=== PATIENT | female | born 1945 | race Caucasian/White ===

== ENCOUNTER 2017-04-27 10:56 | Inpatient (IN) | payer MEDICARE, OTHER ==
[~2017-04-27] VITALS: Ht 170.2 cm; Wt 55.3 kg
[~2017-04-27 10:56] MED LIST: ASPIRIN325 MG PO; BENZTROPINE MESY1 MG PO; BENZTROPINE PO; CELEBREX200 MG PO; CIPRO500 MG PO; DEPAKOTE ER250 MG PO; DEPAKOTE PO; FLUCONAZOLE200 MG PO; FLUPHENAZINE HC10 MG PO; Gabapentin PO; Guaifenesin/Dextromethorphan PO; HYDROCORTISONE20 MG PO; MELATONIN 3 MG1 EACH PO; METRONIDAZOLE500 MG PO; MOBIC7.5 MG PO; NORCO 5-325 TA1 EACH PO; PHENAZOPYRIDIN200 MG PO; PROLIXIN PO; ZOCOR20 MG PO
[2017-04-27] MEDS ORDERED: ALBUTEROL/IPRATROPIUM 3 ML NEB NEB ONE (11:15)
[2017-04-27] MEDS ORDERED: SODIUM CHLORIDE 0.9% 500ML 500 ML ONE (11:17)
[2017-04-27] MEDS ORDERED: SODIUM CHLORIDE 0.9% 500ML 500 ML IV ONE (11:30)
[2017-04-27 11:46] LABS: BASOPHILS # (AUTO) 0.1 (0.0-0.1); BASOPHILS % 0.2 % (0.0-1.0); HEMATOCRIT 37.4 % (34.2-44.1); HEMOGLOBIN 12.9 g/dL (12.0-16.0); LYMPHOCYTES # (AUTO) 1.8 (1.0-3.2); LYMPHOCYTES % 5.2 % (18.0-39.1); MEAN CORPUSCULAR HEMOGLOBIN 33.5 pg (28-32); MEAN CORPUSCULAR HGB CONC 34.5 g/dL (31-35); MEAN CORPUSCULAR VOLUME 97.1 fL (81-99); MONOCYTES # (AUTO) 4.6 (0.2-0.8); MONOCYTES % 13.4 % (4.4-11.3); NEUTROPHILS # (AUTO) 27.3 (2.1-6.9); NEUTROPHILS % 79.6 % (38.7-80.0); PLATELET COUNT 175 x10e3/uL (140-360); RED BLOOD COUNT 3.85 x10e6/uL (3.6-5.1); RED CELL DISTRIBUTION WIDTH 13.8 % (11.7-14.4)
[2017-04-27 11:50] LABS: INR 0.94
[2017-04-27 11:51] LABS: PARTIAL THROMBOPLASTIN TIME 31.9 seconds (23.8-35.5)
[2017-04-27 12:00] LABS: ALANINE AMINOTRANSFERASE 9 IU/L (0-55); ALBUMIN 3.2 g/dL (3.5-5.0); ALBUMIN/GLOBULIN RATIO 0.9 (0.8-2.0); ALKALINE PHOSPHATASE 52 IU/L (40-150); ANION GAP 14.9 mmol/L (8-16); BLOOD UREA NITROGEN 11 mg/dL (7-26); BUN/CREATININE RATIO 15 (6-25); CALCIUM 8.8 mg/dL (8.4-10.2); CARBON DIOXIDE 26 mmol/L (22-29); CHLORIDE 95 mmol/L (98-107); CREATINE KINASE 177 IU/L (29-168); CREATININE, SERUM 0.75 mg/dL (0.57-1.11); EST GLOMERULAR FILTRATION RATE > 60 ML/MIN (60-); GLUCOSE 123 mg/dL (74-118); POTASSIUM 3.9 mmol/L (3.5-5.1); SODIUM 132 mmol/L (136-145)
[2017-04-27 12:11] LABS: TROPONIN I 0.005 ng/mL (0-0.300)
[2017-04-27] MEDS ORDERED: SODIUM CHLORIDE 0.9% 1000ML 1,000 ML ONE (12:13)
[2017-04-27] MEDS ORDERED: PIPER-TAZ 3.375 GM 50 ML IV ONE (12:15)
[2017-04-27] MEDS ORDERED: SODIUM CHLORIDE 0.9% 1000ML 1,000 ML IV SCH (12:15)
[2017-04-27 12:18] LABS: BILIRUBIN,URINE NEGATIVE (NEGATIVE); CLARITY,URINE SL CLOUDY (CLEAR); COLOR,URINE YELLOW (YELLOW); KETONES,URINE NEGATIVE (NEGATIVE); LEUKOCYTE ESTERASE ,URINE NEGATIVE (NEGATIVE); NITRITE,URINE NEGATIVE (NEGATIVE); PROTEIN,URINE DIPSTICK NEGATIVE (NEGATIVE); URINE UROBILINOGEN 0.2 mg/dL (0.2 - 1)
[2017-04-27 12:32] LABS: BACTERIA,URINE RARE /HPF; EPITHELIAL CELLS,URINE RARE /LPF; RBC,URINE 21-50 /HPF (0-5); WBC,URINE (MAN) 0-5 /HPF (0-5)
[2017-04-27] MEDS ORDERED: ALBUTEROL/IPRATROPIUM 3 ML NEB NEB NR (13:00)
[2017-04-27] MEDS ORDERED: VANCOMYCIN 1GM/NS 250 ML 250 ML IV ONE (13:00)
--- NOTE | 2017-04-27 13:54 | Diagnostic Imaging Report ---
PROCEDURE: A single AP view of the chest. COMPARISON: None. INDICATIONS: WEAKNESS, FALL FINDINGS: Lines/tubes: None. Lungs: The lungs are well inflated and clear. There is no evidence of pneumonia or pulmonary edema. Pleura: There is no pleural effusion or pneumothorax. Heart and mediastinum: Calcification of the aortic arch. Bones: No acute bony abnormality. IMPRESSION: 1. No acute cardiopulmonary disease. Anastasiia Masters M.D. Dictated by: Anastasiia Masters M.D. on 04/27/2017 at 14:03 Electronically approved by: Anastasiia Masters M.D. on 04/27/2017 at 14:03
--- NOTE | 2017-04-27 14:03 | Diagnostic Imaging Report ---
PROCEDURE: L-SPINE COMPLETE COMPARISON: None. INDICATIONS: FALL, BACK PAIN, WEAKNESS FINDINGS: There are 5 [id number] lumbar-type vertebral bodies. Rotatory dextroscoliosis of the lumbar spine. Anterior wedge deformity of L2 and to a lesser degree L3 suggesting compression deformities of uncertain age. Degenerative disc disease and spondylosis in the L4-L5. Atherosclerotic calcifications of the abdominal aorta. CONCLUSION: Compression deformities of L2 and L3 suggesting fractures of uncertain age possibly acute in the clinical scenario of recent fall. Anastasiia Masters M.D. Dictated by: Anastasiia Masters M.D. on 04/27/2017 at 14:11 Electronically approved by: Anastasiia Masters M.D. on 04/27/2017 at 14:11
[2017-04-27 14:05] LABS: ABG HCO3 21 mmol/L (23-28); ABG PCO2 31 mmHg (41-51); ABG PH 7.44 (7.31-7.41); ABG PO2 66 mmHg (80-105)
--- NOTE | 2017-04-27 14:09 | Diagnostic Imaging Report ---
PROCEDURE:X-RAY PELVIS, AP VIEW COMPARISON:None. INDICATIONS:FALL, WEAKNESS FINDINGS: Bone fragments lateral to the left hip joint with deformity of the greater trochanter consistent with avulsion fractures of uncertain age, likely old, correlate for left hip pain. Degenerative changes of the lower lumbar spine and bilateral SI joints. Deformity of the left femoral neck with remodeling likely reflecting remote fracture. CONCLUSION: Findings suggestive of remote avulsion fracture of the left greater trochanter and remote healed fracture of the left femoral neck however, correlate for left hip pain. Anastasiia Masters M.D. Dictated by: Anastasiia Masters M.D. on 04/27/2017 at 14:17 Electronically approved by: Anastasiia Masters M.D. on 04/27/2017 at 14:17
--- NOTE | 2017-04-27 14:14 | Diagnostic Imaging Report ---
EXAMINATION: Head CT HISTORY: Status post fall, weakness, pain COMPARISON: Head CT on 01/11/2017 TECHNIQUE: Multidetector axial images were obtained without contrast from the foramen magnum to the vertex . The images were reconstructed using brain and bone algorithms. Thin section brain images were reformatted into coronal and sagittal planes. Intravenous contrast: None. Motion/streaking artifact limits the evaluation of the study in spite of repetition. FINDINGS: Parenchyma: 1. Unchanged mild chronic microvascular ischemic changes. Empty sella turcica calcification of the globi pallidi. 2. No mass or hemorrhage. No CT evidence of acute territorial vascular insult. Extra-axial spaces:No abnormal density. No extra-axial fluid collections Brain volume: Normal for age. Ventricles: No hydrocephalus or displacement. Arteries: No density suggestive of thrombus. Dural sinuses: No abnormal density. Extra-axial spaces: No abnormal density. Foramen magnum: No mass, Chiari malformation, or basilar invagination. Sella: No obvious mass. Paranasal/mastoid sinuses: Imaged portions unremarkable. Skull/Scalp: No lytic or blastic lesions. No fractures. IMPRESSION: 1. Suboptimal study due to motion, grossly no acute intracranial abnormalities, particularly no hemorrhage or acute cortical infarcts. 2. Unchanged mild chronic microvascular ischemic changes. Signed by: Dr. Zhanna Fuentes M.D. on 04/27/2017 2:11 PM
[2017-04-27 14:24] LABS: BAND NEUTROPHILS % (MANUAL) 2 %; LYMPHOCYTES % (MANUAL) 3 % (19-48); MONOCYTES % (MANUAL) 15 % (3.4-9.0); NEUTROPHILS % (MANUAL) 78 % (40-74)
[2017-04-27 14:25] LABS: ANISOCYTOSIS SLIGHT; PLATELET ESTIMATE ADEQUATE; PLATELET MORPHOLOGY COMMENT FEW LARGE; RBC MORPHOLOGY COMMENT NORMAL
[2017-04-27] MEDS ORDERED: METHYLPREDNISOLONE SOD SUCC 125 MG/2ML VIAL IV ONE (14:30)
[2017-04-27] MEDS: ALBUTEROL/IPRATROPIUM 3 ML NEB NEB SCH ×2 (15:00→17:49)
[2017-04-27] MEDS ORDERED: GADOBENATE DIMEGLUMINE 0 ML IV ONE (19:40)
--- NOTE | 2017-04-27 20:58 | Consultation ---
DATE OF CONSULTATION: April 27, 2017 REASON FOR CONSULTATION: Shortness of breath. PRIMARY CARE PHYSICIAN: Dr. Brown. HISTORY OF PRESENT ILLNESS: Ms. Griffin is a 71-year-old female known to me from previous admission. Patient has history of COPD. She presented with worsening shortness of breath going on for last 2 days. She denies any nausea, vomiting or diarrhea. During the last admission, she remained in the ICU on BiPAP. She was hypotensive and was in shock. She went to [facility]. She still smokes. She has advanced COPD. REVIEW OF SYSTEMS: GENERAL: Denies any fever, chills. She reports body aches. HEENT: Denies any head trauma. Denies any earache, nosebleed or throat pain. CVS: Denies any chest pain. RESPIRATORY: Shortness of breath. GI: Denies any nausea or vomiting. Rest of the review systems are negative except as in history of present illness. PAST MEDICAL HISTORY: Osteoporosis, COPD, history of carotid endarterectomy. FAMILY HISTORY AND SOCIAL HISTORY: She still smokes. She does not drink. PHYSICAL EXAMINATION: VITALS: Temperature 98.7, pulse of 104, blood pressure 108/88, respiratory rate of 18 to 20. O2 sat is 92% on 40% FIO2. She is on BiPAP 10/6. HEENT: Head atraumatic and normocephalic. Pupils are reactive. NECK: Supple, no JVD. CHEST: Reduced air entry bilaterally and wheezing. HEART: S1 and S2 audible. ABDOMEN: Soft and nontender. EXTREMITIES: No clubbing, cyanosis or edema. NEUROLOGIC: Awake and alert. LABORATORY DATA: White count 34,000, hemoglobin 12.9, hematocrit 37.4, platelets 175,000. Chemistry is within normal limits. Sodium 132, potassium 3.9, chloride 95, BUN 11, creatinine 0.75. ASSESSMENT AND PLAN: Ms. Griffin is a 71-year-old female with COPD, still smokes. She presented with wheezing and shortness of breath. She was weak. Neurology evaluation has been done. She had a fall today. Chest x-ray is suggestive of no pneumonia. Brain CT is not showing any acute infarct. Lumbar spine CT showed compression deformities of L2 and L3. CURRENT PROBLEMS: 1. Possible chronic obstructive pulmonary disease exacerbation. 2. Leukocytosis. I am unsure if she was getting steroids as an outpatient. 3. Generalized weakness. PLAN: I will check influenza antigen. Continue the patient on Solu-Medrol, vancomycin and Zosyn along with nebulizers ordered. Continue the patient on BiPAP for now. ABG reviewed, pH of 7.4, pCO2 31, pO2 66. This was done on 3 liters nasal cannula. Thank you for this consult. Job#: [id number]
[2017-04-27] MEDS: METHYLPREDNISOLONE SOD SUCC 125 MG/2ML VIAL IV SCH (21:00)
[2017-04-27] MEDS: VANCOMYCIN 1GM/NS 250 ML 250 ML IV SCH (22:00)
[2017-04-27] MEDS: PIPER-TAZ 3.375 GM 50 ML IV SCH (22:00)
--- NOTE | 2017-04-27 22:28 | Consultation ---
DATE OF CONSULTATION: April 27, 2017 NEUROLOGY CONSULT NOTE HISTORY OF PRESENT ILLNESS: Ms. Griffin is a 71-year-old woman who presented to the emergency center at [facility] on the morning of April 27, 2017, after a fall. Ms. Griffin states she was walking to the bathroom when she stumbled over her oxygen tank, fell backwards, and landed on her bottom. The patient did not hit her back, neck, or head. After the fall, the patient was unable to get up due to weakness in her legs. Specifically, the patient felt her legs would not support her weight. Ms. Griffin found it difficult to move due to pain over the sacral spine as well. Some time later, the patient's , who is deaf, found her sitting on the floor in the hallway. He took her to the bathroom, then the patient ambulated to a couch with the aid of a walker. Despite the patient's refusal, her notified emergency medical services, and Ms. Griffin was transported to [facility] via ambulance. At this time, the patient endorses a dull aching pain in both hips. Ms. Griffin reports having a history of bursitis and chronic hip pain. She does not endorse radicular pain in either leg. She does not report numbness, tingling, or pins and needle sensation in either leg. The patient does report weakness in both legs as previously described in the history of present illness. Ms. Griffin does not report any new bladder or bowel symptoms. When asked about back or neck pain, the patient reports chronic back and neck pain for which she takes gabapentin and tramadol. However, she does not report worsening of her chronic neck or back pain at this time. It is important to note, Ms. Griffin was hospitalized at [facility] for diskitis in January of 2017. She was treated for several weeks with intravenous antibiotics. Neurosurgery was consulted during her admission, but the patient was not taken for biopsy or other neurosurgical procedure. Her symptoms gradually improved with intravenous antibiotic treatment. Ms. Griffin has a resting tremor affecting her left hand and arm. The patient reports having this tremor for "a really long time." She does not endorse a tremor in any other extremities. The patient does report slowness of movement as well as impairment of balance and gait. She does not report diminished sense of smell. There is no family history of tremor, Parkinson disease or other neurologic disease in the patient's family. REVIEW OF SYSTEMS: Ms. Griffin endorses dry mouth, shortness of breath, dyspnea on exertion, dry cough, chronic constipation, dry skin, diffuse joint pain, mid and low back pain, questionable dysarthria, weakness of the legs, impaired balance and gait, tremor, and occasional headaches. Otherwise a 12-point review of systems is negative. PAST MEDICAL HISTORY: Ms. Griffin has a past medical history significant for hyperlipidemia, coronary artery disease with a myocardial infarction in 2016, COPD, and osteoarthritis. The patient was diagnosed with schizophrenia at 37 years of age. Ms. Griffin endorses a history of bilateral carotid artery atherosclerosis and stenosis as well as bilateral cataracts. PAST SURGICAL HISTORY: Placement of bilateral carotid stents, bilateral tubal ligation, tonsillectomy. PAST HOSPITALIZATIONS: In addition to the above surgeries, the patient has been hospitalized multiple times for schizophrenia. She has had multiple hospitalizations for COPD exacerbation, pneumonia and diskitis as described in the history of present illness. FAMILY HISTORY: The patient's father from heart failure at the age of 72 years. The patient's mother from heart failure at the age of 82 years. The patient has 1 sister who at the age of 72 due to intercerebral hemorrhage secondary to trauma. A 2nd sister is from lung cancer. Ms. Griffin has 1 child, a son, who is healthy. SOCIAL HISTORY: The patient graduated high school and attended some college. She is retired. 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 Ms. Griffin is . The patient does endorse current tobacco use. She has smoked as much as 1-1/2 packs per day for 45+ years. At this time, the patient smokes one-half pack per day. The patient does not report current or prior alcohol use or recreational drug use. HOME MEDICATIONS: 1. Depakote 500 mg by mouth in the morning and 1000 mg by mouth in the evening. 2. Fluphenazine 5 mg by mouth at bedtime. 3. Gabapentin 300 mg by mouth three times daily. 4. Tramadol 50 mg by mouth 4 times daily. 5. Ms. Griffin takes a medicine for osteoporosis by mouth weekly. 6. The patient is on continuous home oxygen at 4 L via nasal cannula. Upon review of the patient's chart, there are additional home medications listed. These include: 1. Benztropine 1 mg by mouth twice daily. 2. Fluconazole 200 mg by mouth every other day. 3. Meloxicam 7.5 mg by mouth daily. 4. Metronidazole 500 mg by mouth three times daily. 5. Phenazopyridine 200 mg by mouth 2 times daily. Ms. Griffin does not recall taking these medications at home. ALLERGIES: NO KNOWN DRUG ALLERGIES, NO KNOWN FOOD ALLERGIES, NO KNOWN ALLERGY TO LATEX, NO KNOWN ALLERGY TO CONTRAST MATERIAL. PHYSICAL EXAMINATION: VITAL SIGNS: Height 5 feet 7 inches, weight 122 pounds, BMI 19.11. Blood pressure 112/88 mmHg, pulse 104 beats per minute, respiratory rate 22 breaths per minute. The patient is on BiPAP. GENERAL: The patient is awake and alert. On BiPAP. The patient appears thin. The patient appears older than stated age. HEENT: Normocephalic, atraumatic. Pupils are equal, round and reactive to light. Dry mucous membranes. NECK: Supple. No appreciable thyromegaly. No appreciable carotid bruits. CARDIOVASCULAR: S1, S2, regular rhythm, tachycardic. No murmurs, rubs, or gallops. RESPIRATORY: On BiPAP. No wheezes, rhonchi or rales are appreciated. EXTREMITIES: No clubbing, cyanosis, or edema. The posterior tibial and dorsalis pedis pulses are 1+ and symmetric. SKIN: Warm and dry. No rashes or lesions. NEUROLOGIC: MEMORY/ATTENTION: The patient is awake and alert, oriented to person, place, time, and situation. CRANIAL NERVES: Cranial nerve I - not tested. Cranial nerve II, III, IV, and - Pupils are equal and round, react briskly to light (from 4 mm to 2 mm), extraocular movements intact, no nystagmus. Cranial nerve V - sensation to light touch and pinprick is intact in the bilateral V1 through V3 distributions. Strength in the temporalis and mastoid muscles are within normal limits. Cranial nerve VII - the face is symmetric as are all facial movements. Strength is within normal limits. Cranial nerve VIII - hearing is intact to finger rub bilaterally. Cranial nerve IX, X - the soft palate elevates equally and symmetrically. Cranial nerve XI - normal strength of the bilateral sternocleidomastoid and trapezius muscles. Cranial nerve XII - the tongue protrudes in midline and moves symmetrically from side to side. STRENGTH: Bulk is mildly diminished. Strength is 4+/5 to 5/5 in the bilateral deltoids, biceps, triceps, wrist flexors and extensors, finger flexors and extensors, intrinsic hand muscles, hip flexors, knee flexors and extensors, ankle dorsiflexion and plantar flexion, and intrinsic foot muscles. Tone is normal. DTRs: Deep tendon reflexes are 2+ and symmetric at the triceps, biceps, brachioradialis, patellas, and Achilles. Plantar responses are flexor bilaterally. Sustained clonus at the ankles. SENSATION: Sensation is intact to light touch and pinprick in both arms and legs. CEREBELLAR: Flmhna-whnn-pxsutk and heel-estrada movements are intact without dysmetria or other impairment. GAIT: Deferred due to fall risk. SPEECH: Spontaneous speech is normal without appreciable dysarthria or aphasia. Repetition is intact. INVOLUNTARY MOVEMENTS: The patient is observed to have a moderate-frequency, moderate-amplitude resting tremor of the left hand and arm. PRONATOR DRIFT: None. LABORATORY DATA: Sodium 132, potassium 3.9, chloride 95, carbon dioxide 26, anion gap 14.9, BUN 11, creatinine 0.75. Estimated GFR greater than 60. BUN to creatinine ratio 15. Glucose 123, lactic acid 26.3 and 25.3, calcium 8.8. Total bilirubin 0.3. AST 20, ALT 9, alkaline phosphatase 52, creatinine kinase 177, CK-MB 4.70, troponin I 0.005. B-type natriuretic peptide 148.7. Total protein 6.9, albumin 3.2, globulin 3.7, albumin to globulin ratio 0.9. White blood cell count is 34.28 with a right shift, neutrophils 79.6%, lymphocytes 5.2%, monocytes 13.4%, eosinophils 0%, basophils 0.2%. Hemoglobin is 12.9, hematocrit is 37.4, platelet count is 175,000. PT 13.0, INR 0.94, PTT 31.9. Blood gas shows pH of 7.44, pCO2 of 31, pO2 of 66, bicarbonate of 21, oxygen saturation 94. Urinalysis is significant for 4+ blood and 21 to 50 red blood cells. Urine and blood cultures have been drawn and are pending. IMAGING STUDIES: CT of the brain without contrast, April 27, 2017: On my review, the images are of poor quality secondary to movement and streak artifact. There does not appear to be a significant area of ischemia, hemorrhage, mass or mass effect. Trya-on-hydqjxuo chronic small vessel disease is observed. Lumbar spine x-ray, April 27, 2017: On my review, rotary dextroscoliosis of the lumbar spine is observed. Anterior wedge deformity of the L2 and L3 vertebra are seen, suggestive of compression fractures of unknown age. Degenerative disk disease throughout the lumbar spine is appreciated. ASSESSMENT AND PLAN: Ms. Griffin is a 71-year-old woman who presented to [facility] on the morning of April 27, 2017, status post fall at home. At the time of this evaluation, the patient is afebrile and does not report new or worsening neck or back pain. She does report pain in both hips which she attributes to previously diagnosed bursitis. The patient does report weakness in both legs. She does not endorse radicular pain or numbness, tingling or pins and needles sensation affecting either leg. Other than chronic constipation, the patient does not endorse bladder or bowel dysfunction. During this evaluation, Ms. Griffin was found to have a resting tremor affecting the left arm and hand. The patient does report having this tremor for "a long time." In addition to the resting tremor of the left arm, the patient reports slowness of movement and gait and balance impairment. The patient's general physical examination is significant for the patient being on bilevel positive airway pressure. She is tachycardic on general examination. There is no tenderness on palpation of the cervical, thoracic, or lumbar vertebrae. On neurological examination, strength is 4+/5 to 5/5 in all muscles examined in the arms and legs. Tone is normal. Ms. Griffin is observed to have a moderate-frequency and moderate-amplitude resting tremor affecting the left arm and hand. There is no segmental hypokinesis appreciated on her neurological examination. Of note, the patient does have sustained clonus of both ankles. The patient's laboratory data and imaging studies have been reviewed and are documented above. Due to the patient's previous history of diskitis diagnosed in January 2017 and treated with several weeks of intravenous antibiotics, there is concern the patient may be experiencing a recurrence of diskitis. This is of special concern due to the patient's elevated white blood cell count with rightward shift. However, Ms. Griffin does not endorse new or worsening back pain. While she does endorse pain in her hips which is chronic and subjective weakness of her legs, she does not report radicular pain, numbness, tingling, or pins and needles sensation affecting either leg. She does not report new or worsening bladder/bowel dysfunction. On her physical examination, there is no point tenderness with palpation over vertebral bodies throughout the entire spine. Personally, I have a low concern for discitis. Magnetic resonance imaging of the lumbar spine with and without contrast has been ordered and is pending. The history of the patient's fall, the resting tremor observed in the left hand and arm, the reported symptoms of bradykinesia and impairment of gait and balance are suspicious for parkinsonism. The patient has findings of parkinsonism on her neurological examination. It is possible Ms. Griffin has idiopathic Parkinson disease. However, other considerations include vascular parkinsonism. Ms. Griffin does have a history of coronary artery disease with a prior myocardial infarction 2 years ago as well as carotid artery stenosis status post bilateral stent placement. Therefore, it is possible the patient has vascular changes within the brain which could be causing her parkinsonian appearance. Ms. Griffin will be further evaluated with magnetic resonance imaging of the brain without contrast. Another possible diagnosis to account for the patient's symptoms and findings on neurological examination would be parkinsonism as an effect of medication. Ms. Griffin has taken fluphenazine, a first generation antipsychotic, since the age of 37 years. Extrapyramidal movements are a known side effect of this class of medication. On review of the electronic chart, Ms. Griffin has benztropine listed as a home medication. This medication may be given in conjunction with an antipsychotic to increase the amount of dopamine to the brain thereby minimizing the extrapyramidal movements. However, Ms. Griffin reports not taking this medication at home. RECOMMENDATIONS: 1. MRI of the lumbar spine with and without contrast. This study has been ordered. Follow up on the results of this study. 2. Infectious disease and neurosurgery consultations have been placed. Follow up on their recommendations. 3. MRI of the brain without contrast to evaluate for vascular disease as a cause of the patient's parkinsonism. 4. Continue with the patient's psychotropic medications for the time being. Consider prescribing benztropine during this hospitalization. 5. Ms. Griffin should receive smoking cessation counseling prior to her discharge from the hospital. 6. Defer treatment of the remaining medical comorbidities to the primary and other services. Thank you for this consultation. I will continue to follow this patient along with you is in the hospital. Time spent: 70 minutes. Job#: [id number]
[2017-04-27] MEDS ORDERED: SODIUM CHLORIDE 0.9% 50ML 50 ML ONE (22:42)
[2017-04-27] MEDS ORDERED: IOPAMIDOL 370 MG/ML 200 ML INFUS..BTL INJ ONE (22:42)
--- NOTE | 2017-04-27 23:04 | Diagnostic Imaging Report ---
History: Low back pain, discitis. Comparison studies: None Technique: Axial images were obtained from T11 through the sacrum. Coronal and sagittal images reconstructed from the axial data. Intravenous contrast: None Findings: Number of non-rib bearing vertebral bodies: 5 Alignment: Straightening of the lumbar lordosis. Grade I retrolisthesis of L2 on L3. Grade I anterolisthesis of L4 on L5. Levoscoliosis centered at L4-5 . Soft tissues: No abnormalities. Paraspinal muscles: Fatty infiltration at te lumbosacral region secondary to atrophy Vertebrae: No acute fractures, infection or neoplasm. Collapse of L3 superior endplate with sclerotic changes. Degenerative changes: L1-L2: No abnormalities. L2-L3: Obliterated intervertebral space on the left with sclerotic changes and endplate irregularities. Asymmetric left disc osteophyte complex and moderate facet hypertrophy result in moderate canal stenosis and moderate left foraminal narrowing. L3-L4: Asymmetric left disc bulge results in moderate left foraminal narrowing L4-L5: Disc degeneration with sclerotic changes more prominent on the right. Diffuse disc bulge and moderate facet hypertrophy results in moderate canal stenosis, moderate left and severe right foraminal narrowing L5-S1: Patent canal and foramina Sacroiliac joints: Mild degenerative changes. Atherosclerotic changes of the abdominal aorta and branches. IMPRESSION: 1. Severe disc degeneration at L2-3 and L4-5. Chronic depression of L2 superior endplate. No CT changes of discitis 2. Moderate canal stenosis, severe right and moderate left foraminal narrowing at L4-5 secondary to degenerative changes. Other degenerative changes as described above. Signed by: DR Tate Jasmine M.D. on 04/27/2017 11:01 PM
[2017-04-28] MEDS: ALBUTEROL/IPRATROPIUM 3 ML NEB NEB SCH ×7 (00:15→23:45)
--- NOTE | 2017-04-28 00:19 | History and Physical ---
HISTORY OF PRESENT ILLNESS: This is one of many admissions. The patient presented to the emergency room with symptoms of weakness. She was short of breath and found to be hypoxemic. She has had multiple similar admissions and previously has had marked leukemoid reactions. The patient has a history of COPD and has been smoking heavily. She states she also used marijuana in the past occasionally. See also multiple recent stays here including last January stay. History has included nonobstructive coronary changes on recent heart cath elsewhere. PAST SURGICAL HISTORY: Includes 2012 right carotid endarterectomy. EGD and colonoscopy April 2015. Prior tonsillectomy. Bilateral tubal ligation. FAMILY HISTORY: Includes mother with high blood pressure and diabetes. Father with organic heart disease. MEDICATIONS: The patient did not bring her home meds and does not know what her home meds are. ER obtained a partial list including Benztropine, Mobic, Flagyl, prior use of divalproex and fluphenazine, phenazopyridine and Neurontin. PAST MEDICAL HISTORY: See also admission January 2015 with similar difficulties including COPD. History of bipolar disorder and schizophrenia. Patient has had chronic back pain and last fall outpatient imaging studies and inpatient imaging studies (01/12/17 here, MRI and lumbar spine), with impression of L2-3 and L4-5 chronic diskitis-osteomyelitis, advanced facet arthrosis, foraminal stenosis L2-3 left and L4-5 right, multilevel DJD per Dr. Hanley, radiologist here. At that time, the patient was seen by infectious disease retail consultant, Dr. Thomason, ordered by Dr. Hagan, our pipe organ mechanic. Dr. Thomason had consulted a neurosurgeon at that time, see the notes from Dr. Thomason then. The patient was not biopsied and she was given a lengthy course of appropriate length for highly suspected vertebral osteomyelitis including stay here and later at a long-term facility. ALLERGIES: NO KNOWN DRUG ALLERGIES. IMPRESSION: Of L2-3 and L4-5. Chronic diskitis-osteomyelitis. His abscesses arthrosis. The patient's difficulties have included atherosclerosis and the patient has had marked reduction in circulation to both upper extremities causing the blood pressure in the upper extremities to chronically be low, although pressure measured in the lower extremities is normal. REVIEW OF SYSTEMS: The patient denies headache or visual change. She denies chest pain. Chronic shortness of breath worse today. Denies current GI or symptoms. Chronic low back pain. She does report weakness of legs with onset today. Denies symptoms. PHYSICAL EXAMINATION VITAL SIGNS: Temperature 98.5. Pulse 100 and regular. Respiratory rate 20. Patient is on BiPAP term eye exam. The recorded blood pressure is 104/60 with O2 pulse oximetry at 99% on BiPAP. O2 sat per ER physician was in the 80's earlier. HEENT: Pupils equally round and reactive. EOMs adequate. Sensorium is baseline. NECK: Flexes. Carotid pulses are weak. PULMONARY: Generalized reduction in pulmonary breath sounds. CARDIAC: S1 and S2 are soft without audible gallop, murmur or rub. ABDOMEN: Soft. Bowel sounds are normal. EXTREMITIES: Upper extremity pulses are weak (not palpable in the extremities although there is not cyanosis, clubbing or edema. Lower extremity pulses are palpable. NEUROLOGIC: Deep tendon reflexes are depressed. Strength is fair tested in the supine position. Babinski is negative. The patient has resting tremor of the left upper extremity. Head CT done last admission essentially negative. White count 34,280 with 13.4% monos, 5.2% lymphocytes, 79.6% neutrophils. Hemoglobin of 12.9. MCHC is elevated at 33.5. Platelet count 175,000. INR. 0.94. PTT 31.9. Urinalysis, cath specimen 21-50 red per high power field. Sodium 132. Chloride 95. Glucose 123. CPK 177. CK-MB normal at 4.7. Troponin normal at 0.005. B-natriuretic peptide 148. Albumin 3.2, low. Globulin 3.7 trace high. Lactic acid 26 normal being 4.5 to 9.8. The pH 7.44. CO2 31. O2 66. ABGs done at 1350. Urine and blood cultures ordered and sent per ER. Head CT was done again today by the emergency room at 11 this morning. I was called late this afternoon. See ER notes. Report of head CT suboptimal study due to motion, grossly no acute intracranial abnormalities. Mild chronic microvascular ischemic change, unchanged from prior study read by Dr. Fuentes, radiologist. ER chest x-ray no acute cardiopulmonary disease. The lumbar spine x-ray showed compression deformity L2 and L3 suggesting fractures of uncertain age, possibly acute in the clinical scenario of recent fall. Pelvis x-ray showed remote avulsion fracture left greater trochanter and remote healed fracture left femoral neck. CURRENT IMPRESSION 1. Chronic obstructive pulmonary disease. Heavy smoker. Respiratory failure with exacerbation of chronic obstructive pulmonary disease. 2. Marked leukemoid reaction. 3. Abnormal lumbar spinal x-ray now and diskitis, vertebral osteomyelitis last fall. 4. Mood disorder. 5. Atherosclerosis with poor circulation to the upper extremities and chronically low blood pressure in the upper extremities. Blood pressures should be taken in the lower extremities. See also initial orders. To reassess. ER has initiated treatment with IV antibiotics and steroids. BiPAP. Will ask the patient's prior consultants to see her again. Job#: [id number]
--- NOTE | 2017-04-28 00:30 | Consultation ---
DATE OF CONSULTATION: April 27, 2017 REASON FOR CONSULTATION: I was consulted by Dr. Brown to see the patient urgently. HISTORY OF PRESENT ILLNESS: This is a 71-year-old white female who is known to me from before. She has a history of COPD, history of diskitis. Patient received IV antibiotics for 8 weeks. [facility] and then she is coming now after she fell and that she was down for about 30 minutes. Patient said she is not feeling well. She was brought to the emergency room. In the emergency room, she was evaluated. White count was elevated at 30,000, so infectious disease was consulted. The patient is complaining of issues of not feeling well. She had body aches all over. She states she fell. She was down for about 30 minutes. She called 911. She never passed out. The patient has history of COPD, osteoporosis, past surgical history of carotid disease with endarterectomy. The patient apparently was walking towards the bathroom when she stumbled over her oxygen tank and fell backward and landed on her buttock area, never passed out. ALLERGIES: NKDA. PAST MEDICAL HISTORY: Hyperlipidemia, coronary artery disease, myocardial infarction with atherosclerotic disease, carotid artery disease, COPD, schizophrenia, diskitis. PAST SURGICAL HISTORY: Bilateral carotid surgery, stent, tubal ligation. SOCIAL HISTORY: There is no smoking, drug abuse or alcohol abuse. FAMILY HISTORY: Heart disease and diabetes. REVIEW OF SYSTEMS: When I saw the patient, HEENT: There is no headache, visual changes, hearing changes. GI: There is no nausea, no vomiting, no diarrhea. CARDIAC: There is no arrhythmia. NEURO: No seizure activity. SKIN: There is no rash. LABORATORY DATA: White count 34.2, hemoglobin 12, hematocrit 37, platelet 175,000. Sodium 132, potassium 3.5, creatinine 0.75. Blood cultures still pending. She had CT of the lumbar spine which was severe, degenerative joint disease. She had chest x-ray. No acute finding. MEDICATIONS: List reviewed. She is currently on albuterol, methylprednisolone, vancomycin and Zosyn. PHYSICAL EXAMINATION GENERAL: She is currently alert, oriented, does not seem to be in acute distress. VITALS: Stable, currently afebrile. HEENT: She is not icteric. NECK: Supple. CHEST: Clear. COR: S1, S2. No murmur. ABDOMEN: Soft. Bowel sounds present. No tenderness. EXTREMITIES: No edema. SKIN: No rash. IMPRESSION 1. Leukocytosis, probably reactive. Infection could not be ruled out. Agree with blood cultures and urine cultures. Agree with antibiotic, vancomycin and Zosyn. Recheck complete blood count, recheck chemistry panel. Clinically, she seems to be stable. Neurology is following the patient. 2. Coronary artery disease, atherosclerotic disease. 3. History of chronic obstructive pulmonary disease. 4. We will follow with you. Discussed with the patient. Job#: [id number] SWAPNA
[2017-04-28 06:24] LABS: BASOPHILS # (AUTO) 0.1 (0.0-0.1); BASOPHILS % 0.2 % (0.0-1.0); HEMATOCRIT 36.6 % (34.2-44.1); HEMOGLOBIN 12.7 g/dL (12.0-16.0); LYMPHOCYTES # (AUTO) 1.9 (1.0-3.2); LYMPHOCYTES % 5.9 % (18.0-39.1); MEAN CORPUSCULAR HEMOGLOBIN 33.2 pg (28-32); MEAN CORPUSCULAR HGB CONC 34.7 g/dL (31-35); MEAN CORPUSCULAR VOLUME 95.8 fL (81-99); MONOCYTES # (AUTO) 2.6 (0.2-0.8); MONOCYTES % 8.2 % (4.4-11.3); NEUTROPHILS # (AUTO) 27.4 (2.1-6.9); NEUTROPHILS % 84.8 % (38.7-80.0); PLATELET COUNT 157 x10e3/uL (140-360); RED BLOOD COUNT 3.82 x10e6/uL (3.6-5.1); RED CELL DISTRIBUTION WIDTH 13.5 % (11.7-14.4)
[2017-04-28 06:38] LABS: ANION GAP 15.7 mmol/L (8-16); BLOOD UREA NITROGEN 10 mg/dL (7-26); BUN/CREATININE RATIO 18 (6-25); CALCIUM 9.4 mg/dL (8.4-10.2); CARBON DIOXIDE 22 mmol/L (22-29); CHLORIDE 98 mmol/L (98-107); CREATININE, SERUM 0.56 mg/dL (0.57-1.11); EST GLOMERULAR FILTRATION RATE > 60 ML/MIN (60-); GLUCOSE 110 mg/dL (74-118); POTASSIUM 3.7 mmol/L (3.5-5.1); SODIUM 132 mmol/L (136-145)
[2017-04-28] MEDS: VANCOMYCIN 1GM/NS 250 ML 250 ML IV SCH (06:45)
[2017-04-28] MEDS: PIPER-TAZ 3.375 GM 50 ML IV SCH ×2 (06:45→14:54)
--- NOTE | 2017-04-28 07:46 | Diagnostic Imaging Report ---
PROCEDURE: A single AP view of the chest. COMPARISON: Portable chest 04/27/2017. INDICATIONS: SOB, COPD FINDINGS: Lines/tubes: None. Lungs: The lungs are well inflated and clear. There is no evidence of pneumonia or pulmonary edema. Bibasilar atelectasis. Pleura: There is no pleural effusion or pneumothorax. Heart and mediastinum: The heart and the mediastinum are unremarkable. Atherosclerotic calcifications. Bones: No acute bony abnormality. Degenerative changes of the thoracic spine. IMPRESSION: No acute radiographic abnormality. Dictated by: Nikita Mcelroy M.D. on 04/28/2017 at 7:55 Electronically approved by: Nikita Mcelroy M.D. on 04/28/2017 at 7:55
[2017-04-28 07:53] VITALS: BP 97/74
[2017-04-28 07:58] LABS: ABG HCO3 26 mmol/L (23-28); ABG PCO2 35 mmHg (41-51); ABG PO2 187 mmHg (80-105)
[2017-04-28 08:04] LABS: BAND NEUTROPHILS % (MANUAL) 4 %; LYMPHOCYTES % (MANUAL) 10 % (19-48); MONOCYTES % (MANUAL) 8 % (3.4-9.0); NEUTROPHILS % (MANUAL) 78 % (40-74); PLATELET ESTIMATE ADEQUATE; PLATELET MORPHOLOGY COMMENT NORMAL; RBC MORPHOLOGY COMMENT NORMAL
[2017-04-28] MEDS ORDERED: VANCOMYCIN 1GM/NS 250 ML 250 ML IV SCH ×3 (10:45→23:56)
[2017-04-28] MEDS: METHYLPREDNISOLONE SOD SUCC 125 MG/2ML VIAL IV SCH ×3 (11:44→22:09)
[2017-04-28 13:29] VITALS: BP 176/85
[2017-04-28] MEDS ORDERED: METHYLPREDNISOLONE SOD SUCC 40 MG/ML VIAL IV SCH (14:00)
[2017-04-28] MEDS ORDERED: GADOBENATE DIMEGLUMINE 1 ML IV ONE (17:02)
--- NOTE | 2017-04-28 18:54 | Diagnostic Imaging Report ---
History: Weakness and tremor Comparison studies: Head CT 04/27/2017. Technique: Sagittal T2; axial DWI, FLAIR, MPGR, T1, Coronal FLAIR. Intravenous contrast: None Findings: Image quality is degraded due to motion artifact Scalp: Normal in signal . No masses . Bone marrow: Normal in signal intensity. Extra-axial: No masses or fluid collections. Brain sulci: Mildly prominent. Ventricles: Mild compensatory dilatation. No hydrocephalus. Parenchyma: Mild confluent periventricular and scattered foci of T2 FLAIR hyperintensity within the bilateral subcortical and deep cerebral white matter and mariano are mild chronic small vessel ischemic changes. No masses, hemorrhage, acute or chronic cortical ischemic insults. Suprasellar region: No abnormalities. Craniocervical junction: No abnormalities. Patent foramen magnum. No Chiari one malformation. Vessels: Loss od flow void at the right internal carotid artery. The remaining flow voids are preserved. IMPRESSION: 1. No acute intracranial abnormality. 2. Loss of flow void at the right internal carotid artery, this could be related to no flow or slow flow. 3. Mild chronic small vessel ischemic changes. 4. Mild generalized intracranial volume loss. 5. Limited examination due to motion artifact. Preliminary report was provided by neuroradiology fellow, Dr.Thach Jhoana MD on 04/28/2017 6:53 PM. Signed by: DR Tate Jasmine M.D. on 04/28/2017 11:20 PM
[2017-04-28] MEDS: BENZTROPINE MESYLATE 1 MG TAB PO SCH (19:22)
--- NOTE | 2017-04-28 19:40 | Diagnostic Imaging Report ---
History: Weakness and recent fall Comparison studies: CT lumbar spine 04/27/2017. Technique: Pre-contrast sagittal, coronal and axial T2 , sagittal T1 and IR, axial spin density oblique. Postcontrast axial and sagittal T1 Intravenous contrast: 11 cc of MultiHance Findings: Number of lumbar vertebral bodies:5 Alignment:Leftward curvature of the lumbar spine with apex at L4. Right lateral subluxation of L3 on L4 and left lateral subluxation of L4 on L5 is better seen on the prior CT. Soft tissues:No T2 hyperintense inflammatory changes. Paraspinal muscles: Moderate fatty atrophy. Lower thoracic cord:Normal in signal and morphology. The tip of the conus is at L1. Cauda equina:No masses. No arachnoiditis. Vertebrae: At L2-L3, there is stable moderate loss of the left L2 vertebral body height with associated endplate sclerosis. Severe loss of disc height with hyperintense STIR signal in the disc is similar. At L4-L5, there is increased STIR signal and enhancement in the inferior endplates of L4 on the left. This is new compared to the prior 01/12/2017 lumbar spine MRI. Additional areas of STIR signal and enhancement in the left L4-L5 endplates are similar. Sclerotic changes without enhancement in the right endplates are stable. Severe loss of disc height with STIR hyperintense disc signal is similar. Remaining vertebral bodies have normal signal and morphology. Degenerative changes: L1-L2: Moderately degenerated disc with disc bulge and posterior annular fissure. No spinal canal or foraminal stenosis. L2-L3: Severely degenerated disc with a posterior disc bulge/osteophyte. Ligament flavum hypertrophy and mild bilateral facet degeneration contributes to mild spinal canal stenosis. Severe left foraminal stenosis due to endplate degeneration and hypertrophic changes from lateral subluxation of L2 on L3. Right foramen is patent. L3-L4: Moderate disc degeneration with symmetric disc bulge. Ligament flavum hypertrophy and mild bilateral facet degeneration contributes to mild spinal canal stenosis. Mild bilateral foraminal stenosis. L4-L5: Severely degenerative disc with left asymmetric disc bulge. Ligament flavum hypertrophy and moderate bilateral facet degeneration contributes to moderate spinal canal stenosis. Severe right foraminal stenosis due to endplate degeneration and hypertrophic changes from right lateral subluxation of L3 on L4. Moderate left foraminal stenosis due to left asymmetric disc bulge. L5-S1: Normal disc. Moderate bilateral facet degeneration and ligament flavum hypertrophy. No spinal canal stenosis. Patent foramina. Additional findings: None. IMPRESSION: 1. Compared to the 01/12/2017 MRI, there has been interval increase in enhancement and hyperintense STIR signal within the inferior endplate of L4 on the left. This is superimposed on the chronic endplate degenerative signal changes and enhancement. The progressive enhancement is likely related to progressive endplate degenerative signal changes. Acute osteomyelitis is felt less likely. 2. Chronic L2 deformity with L2-L3 disc and endplate appears stable. 3. No acute compression fractures. 4. Moderate lumbar spine spondylosis most pronounced at L4-L5 where there is moderate spinal canal stenosis, severe right foraminal stenosis and moderate left foraminal stenosis. 5. Severe degenerative left foraminal stenosis at L2-L3. Preliminary report was provided by neuroradiology fellow, Dr.Thach Jhoana MD on 04/28/2017 7:39 PM. Signed by: DR Tate Jasmine M.D. on 04/28/2017 11:27 PM
[2017-04-28 20:20] VITALS: BP 137/77
[2017-04-28 20:40] VITALS: BP 137/77
[2017-04-28] MEDS ORDERED: SODIUM CHLORIDE 0.9% 250ML 250 ML ONE (21:32)
[2017-04-28 22:34] VITALS: BP 137/77
[2017-04-28] MEDS: ACETAMINOPHEN 325 MG TAB PO PRN (22:58)
[2017-04-29] VITALS: BP 135/71
[2017-04-29] MEDS: PIPER-TAZ 3.375 GM 50 ML IV SCH ×2 (00:48→05:34)
[2017-04-29] MEDS: ALBUTEROL/IPRATROPIUM 3 ML NEB NEB SCH ×6 (03:00→23:15)
[2017-04-29] MEDS: METHYLPREDNISOLONE SOD SUCC 125 MG/2ML VIAL IV SCH (05:34)
[2017-04-29 05:36] VITALS: BP 128/60
[2017-04-29 07:05] VITALS: BP 133/71
[2017-04-29] MEDS: BENZTROPINE MESYLATE 1 MG TAB PO SCH ×2 (08:17→17:17)
[2017-04-29] MEDS: ACETAMINOPHEN 325 MG TAB PO PRN ×2 (09:36→18:15)
[2017-04-29] MEDS ORDERED: VANCOMYCIN 1GM/NS 250 ML 250 ML IV SCH (11:00)
[2017-04-29 11:30] VITALS: BP 129/63
[2017-04-29 15:13] VITALS: BP 120/73
[2017-04-29 19:00] VITALS: BP 137/72
[2017-04-30] VITALS (8 sets, daily range): BP systolic 113–149; BP diastolic 61–88
[2017-04-30] MEDS: ACETAMINOPHEN 325 MG TAB PO PRN ×3 (00:15→21:38)
[2017-04-30] MEDS: ALBUTEROL/IPRATROPIUM 3 ML NEB NEB SCH ×6 (03:00→23:30)
[2017-04-30 06:49] LABS: BASOPHILS % 0.1 % (0.0-1.0); HEMATOCRIT 34.2 % (34.2-44.1); LYMPHOCYTES # (AUTO) 3.1 (1.0-3.2); LYMPHOCYTES % 15.6 % (18.0-39.1); MEAN CORPUSCULAR HEMOGLOBIN 33.4 pg (28-32); MEAN CORPUSCULAR HGB CONC 35.1 g/dL (31-35); MEAN CORPUSCULAR VOLUME 95.3 fL (81-99); MONOCYTES # (AUTO) 1.7 (0.2-0.8); MONOCYTES % 8.5 % (4.4-11.3); NEUTROPHILS # (AUTO) 14.8 (2.1-6.9); PLATELET COUNT 195 x10e3/uL (140-360); RED BLOOD COUNT 3.59 x10e6/uL (3.6-5.1); RED CELL DISTRIBUTION WIDTH 13.6 % (11.7-14.4)
[2017-04-30 07:11] LABS: BLOOD UREA NITROGEN 11 mg/dL (7-26); BUN/CREATININE RATIO 18 (6-25); CALCIUM 8.6 mg/dL (8.4-10.2); CARBON DIOXIDE 25 mmol/L (22-29); CHLORIDE 97 mmol/L (98-107); CREATININE, SERUM 0.62 mg/dL (0.57-1.11); EST GLOMERULAR FILTRATION RATE > 60 ML/MIN (60-); GLUCOSE 92 mg/dL (74-118); SODIUM 131 mmol/L (136-145)
[2017-04-30] MEDS: METHYLPREDNISOLONE SOD SUCC 40 MG/ML VIAL IV SCH (09:22)
[2017-04-30] MEDS: BENZTROPINE MESYLATE 1 MG TAB PO SCH ×2 (09:22→16:37)
[2017-04-30 11:11] LABS: BAND NEUTROPHILS % (MANUAL) 1 %; LYMPHOCYTES % (MANUAL) 7 % (19-48); MONOCYTES % (MANUAL) 11 % (3.4-9.0); NEUTROPHILS % (MANUAL) 81 % (40-74); PLATELET ESTIMATE ADEQUATE; PLATELET MORPHOLOGY COMMENT NORMAL; RBC MORPHOLOGY COMMENT NORMAL
[2017-04-30] MEDS ORDERED: POTASSIUM CHLORIDE 20 MEQ TAB CR PO ONE (14:00)
[2017-04-30] MEDS: MELOXICAM 7.5 MG TAB PO SCH (18:10)
[2017-05-01 00:17] VITALS: BP 144/82
[2017-05-01] MEDS: ACETAMINOPHEN 325 MG TAB PO PRN (03:30)
[2017-05-01] MEDS: ALBUTEROL/IPRATROPIUM 3 ML NEB NEB SCH ×4 (03:45→15:00)
[2017-05-01 05:20] VITALS: BP 148/80
[2017-05-01 06:28] LABS: BASOPHILS # (AUTO) 0.1 (0.0-0.1); BASOPHILS % 0.3 % (0.0-1.0); EOSINOPHILS % 0.3 % (0.0-6.0); HEMATOCRIT 36.5 % (34.2-44.1); HEMOGLOBIN 12.6 g/dL (12.0-16.0); LYMPHOCYTES # (AUTO) 3.2 (1.0-3.2); LYMPHOCYTES % 20.5 % (18.0-39.1); MEAN CORPUSCULAR HEMOGLOBIN 33.2 pg (28-32); MEAN CORPUSCULAR HGB CONC 34.5 g/dL (31-35); MEAN CORPUSCULAR VOLUME 96.1 fL (81-99); MONOCYTES # (AUTO) 2.2 (0.2-0.8); MONOCYTES % 13.9 % (4.4-11.3); NEUTROPHILS # (AUTO) 9.9 (2.1-6.9); NEUTROPHILS % 63.6 % (38.7-80.0); PLATELET COUNT 210 x10e3/uL (140-360); RED CELL DISTRIBUTION WIDTH 13.8 % (11.7-14.4)
[2017-05-01 06:45] LABS: ANION GAP 14.5 mmol/L (8-16); BLOOD UREA NITROGEN 10 mg/dL (7-26); BUN/CREATININE RATIO 15 (6-25); CALCIUM 8.8 mg/dL (8.4-10.2); CARBON DIOXIDE 25 mmol/L (22-29); CHLORIDE 100 mmol/L (98-107); CREATININE, SERUM 0.65 mg/dL (0.57-1.11); EST GLOMERULAR FILTRATION RATE > 60 ML/MIN (60-); GLUCOSE 93 mg/dL (74-118); POTASSIUM 3.5 mmol/L (3.5-5.1); SODIUM 136 mmol/L (136-145)
[2017-05-01 07:35] VITALS: BP 100/64
[2017-05-01 07:40] VITALS: BP 100/64
[2017-05-01 07:51] LABS: EOSINOPHILS % (MANUAL) 1 % (0-7); LYMPHOCYTES % (MANUAL) 13 % (19-48); METAMYELOCYTES % (MANUAL) 1 % (0-0); MONOCYTES % (MANUAL) 14 % (3.4-9.0); NEUTROPHILS % (MANUAL) 71 % (40-74)
[2017-05-01 07:52] LABS: ANISOCYTOSIS SLIGHT; PLATELET ESTIMATE ADEQUATE; PLATELET MORPHOLOGY COMMENT NORMAL; RBC MORPHOLOGY COMMENT NORMAL
[2017-05-01] MEDS: MELOXICAM 7.5 MG TAB PO SCH (08:12)
[2017-05-01] MEDS: BENZTROPINE MESYLATE 1 MG TAB PO SCH (08:12)
[2017-05-01] MEDS: METHYLPREDNISOLONE SOD SUCC 40 MG/ML VIAL IV SCH (08:21)
[2017-05-01] MEDS ORDERED: MELOXICAM 7.5 MG TAB PO SCH (09:00)
[2017-05-01 10:38] VITALS: BP 100/64
--- NOTE | 2017-05-01 11:35 | Consultation ---
DATE OF CONSULTATION: PSYCHIATRIC INITIAL CONSULT REASON FOR CONSULTATION: For treatment and evaluation of patient's mood and anxiety. HISTORY OF PRESENTING ILLNESS: Patient is a 71-year-old female who was admitted to [facility] because of COPD exacerbation. Psychiatric consult is called to evaluate patient's mood and anxiety during her inpatient stay. Upon evaluation today, patient is found to be lying on her bed. She is alert, awake, oriented to situation. She states that she has been feeling depressed and anxious because of her ongoing hospital stay and medical health issues. She denies feeling hopeless and helpless. She claimed that she is having some issues with her sleep, but her appetite is fine. She denies any hallucinations and/or any suicidal ideation at this time. As per the medical record, patient has been on Depakote and Prolixin. PAST PSYCHIATRIC HISTORY: Patient states that she has been treated for bipolar schizoaffective disorder. She has never attempted any suicide. She drinks alcohol 3 to 4 days a week and usually consumes 1 beer on each occasion. She denies using any recreational drugs. FAMILY HISTORY: Patient denies any family history of psychiatric illness. SOCIAL HISTORY: Patient currently lives with her . CURRENT LABS: WBC 15.47, hemoglobin 12.6, hematocrit 36.5, and platelets 210. Sodium 136, potassium 3.5, chloride 100, carbon dioxide 25, BUN 10, and creatinine 0.65. CURRENT MEDICATIONS 1. Albuterol. 2. Cogentin 1 mg p.o. q. b.i.d. 3. Prednisone. MENTAL STATUS EXAMINATION: Patient is an elderly female who is currently lying on her back. She is calm and cooperative. Her mood is anxious and depressed with appropriate affect. She denies any suicidal or homicidal ideation at present. She denies any abnormal perceptions at present. No delusions are elicited. Her thought process is goal directed. Her insight and judgment are fair. IMPRESSION AXIS I: Schizoaffective disorder, bipolar type. AXIS II: Deferred. AXIS III: As per medical history. AXIS IV: [id number]. AXIS V: Global assessment of functioning is 45. RECOMMENDATIONS: Based on this clinical assessment, patient appears to be somewhat depressed and anxious, but she is not psychotic or agitated. Following are the recommendations for now; 1. Add Prolixin 5 mg p.o. q. b.i.d. 2. Add Depakote 500 mg p.o. q. b.i.d. 3. Supportive therapy during her inpatient stay. 4. Continue Cogentin. We will continue to follow this patient during her inpatient stay for management of her psychiatric symptoms. Thank you very much for this consult. Job#: [id number] PAT
[2017-05-01 11:40] VITALS: BP 124/71
[2017-05-01] MEDS ORDERED: ASPIRIN 81 MG CHEW TAB PO ONE (13:30)
[2017-05-01 14:29] LABS: CREATINE KINASE MB 0.7 ng/mL (0.00-5.00); THYROID STIMULATING HORMONE 0.872 uIU/mL (0.350-4.940); TROPONIN I 0.006 ng/mL (0-0.300)
[2017-05-01] MEDS ORDERED: DEPAKOTE DELAYED-RELEASE TAB 500 MG PO SCH (17:00)
[2017-05-01] MEDS ORDERED: FLUPHENAZINE HCL 2.5 MG TAB PO SCH (17:00)
[2017-05-02] MEDS ORDERED: PREDNISONE 20 MG TAB PO SCH (09:00)
--- NOTE | 2017-05-02 09:24 | Discharge Summary ---
HOSPITAL COURSE: The patient presented to the emergency room with severe leg weakness. The patient had a prior history of diskitis, vertebral osteomyelitis. See records here last fall. At that time, she was being followed by her infectious disease physician, Dr. Thomason, who consulted Dr. Ordoñez who declined to biopsy the patient. She was treated with empirical antibiotics. This admission, she was reassessed by Dr. Thomason. Dr. Ordoñez was consulted again. The patient was also seen by a neurologist this admission, Dr. Briceno. In the emergency room, an MRI was requested to follow up regarding her leg weakness and diskitis. The neurologist also ordered a CT of the lumbosacral spine. See reports. The consultants stated neither had significant concern regarding diskitis or cord compression at this time. The patient presented with marked leukemoid reaction to 34,000. See serial blood counts. This fell to 20,000 on antibiotics. The infectious disease technical marketing consultant stopped the antibiotics on April 29, 2017, however. Blood cultures, urine culture were negative. Chest x-ray with COPD. Patient presented in respiratory failure with low O2 saturation and tachypnea and congestion. She had a history of COPD and heavy tobacco use. Patient stated she was smoking until the time that she transferred here from home. She required support with BiPAP and supplemental oxygen. The patient was kindly reassessed and followed by her pulmonary medicine consultants, Dr. Hagan and associates while here. Treatment included for her exacerbation of COPD, intravenous antibiotics which ER physician kindly initiated. Bronchodilators, nebulizer treatments, and supplemental O2 were added to her regimen. The patient had a course of progressive improvement, although she continued to have significant dyspnea on exertion. The patient has a history of psychosis and her psychiatrist, Dr. Yuan, was requested to see the patient. Order was submitted electronically on April 30, 2017. See also history and physical and multiple technical marketing consultant notes. Database was monitored. Hypokalemia was repleted. Course was complicated by an episode of paroxysmal atrial fibrillation which resolved spontaneously after a few minutes. At that time, cardiac enzymes were negative. TSH was normal at 0.872. Patient's power and recovery superintendent, Dr. Jacob, was asked to see the patient. Unfortunately, the patient left the hospital against medical advice on the final hospital day, May 01, 2017, in the afternoon. FINAL IMPRESSIONS 1. Recurrent leukemoid reactions. 2. History of diskitis. 3. Subjective leg weakness. 4. Chronic obstructive pulmonary disease with acute exacerbation. 5. Schizophrenia. 6. Tobacco abuse. 7. Hypokalemia, repleted. 8. Degenerative joint disease with prior compression fractures. See also radiology reports. Serial laboratory and imaging studies documented per electronic medical record. JENNIFER PETIT MD Job#: [id number] TONY
== END 2017-05-01 15:15 | disposition left against medical advice (07) | DRG 191 ==
LOC: ER 11:00 → ERHOLD 14:58 → IMCU 04-28 19:31
PROVIDERS: ADMIT Internal Medicine; ATTEND Internal Medicine
DX: J44.1 Chronic obstructive pulmonary disease with (acute) exacerbation (principal); M47.16 Other spondylosis with myelopathy, lumbar region; G20 Parkinson's disease; M48.56XA Collapsed vertebra, not elsewhere classified, lumbar region, initial encounter for fracture; M46.26 Osteomyelitis of vertebra, lumbar region; I48.0 Paroxysmal atrial fibrillation; E87.6 Hypokalemia; D72.823 Leukemoid reaction; F17.210 Nicotine dependence, cigarettes, uncomplicated; F25.0 Schizoaffective disorder, bipolar type; I25.2 Old myocardial infarction; I25.10 Atherosclerotic heart disease of native coronary artery without angina pectoris; K59.00 Constipation, unspecified; M81.0 Age-related osteoporosis without current pathological fracture; G89.29 Other chronic pain; M54.5 Low back pain; R09.02 Hypoxemia; F12.90 Cannabis use, unspecified, uncomplicated
CPT/HCPCS: 36415; 36600; 70450; 70551; 71010; 71045; 72110; 72132; 72158; 72170; 80048; 80053; 80202; 81001; 82550; 82553; 82805; 83605; 83880; 84443; 84484; 85025; 85610; 85730; 86592; 87040; 87086; 87400; 93005; 94640; 94660; 99285; J2543; J2920; J2930; J3370; J7030; J7040; J7050; Q9967